=== PATIENT | male | born 1995 ===

== ENCOUNTER 2017-05-13 19:24 | Emergency (ER) | payer OTHER | END 2017-05-13 20:55 | disposition home or self-care (01) | LOC: BURERS 19:24 | DX: E86.0 Dehydration (principal); F90.9 Attention-deficit hyperactivity disorder, unspecified type; F17.220 Nicotine dependence, chewing tobacco, uncomplicated; Z79.899 Other long term (current) drug therapy | CPT/HCPCS: 96360 ==

== ENCOUNTER 2017-05-14 18:03 | Emergency (ER) | payer OTHER | END 2017-05-14 18:25 | disposition home or self-care (01) | LOC: BURERS 18:03 | DX: E86.0 Dehydration (principal); F90.9 Attention-deficit hyperactivity disorder, unspecified type; F17.220 Nicotine dependence, chewing tobacco, uncomplicated | CPT/HCPCS: 99283 ==